=== PATIENT | female | born 1970 | race Caucasian/White ===

== ENCOUNTER 2021-07-10 13:29 | Emergency (ER) | payer OTHER ==
[~2021-07-10] VITALS: Ht 170.2 cm; Wt 93.0 kg
[~2021-07-10 13:29] MED LIST: CELEXA 20 MG TA20 MG PO; COZAAR100 MG PO; HYDROCODON-ACE1 EAC5 PO; HYDROCODONE-AP1 EAC6 PO; IBUPROFEN 400400 M1 PO; IBUPROFEN 800800 M1 PO; LODINE XL500 MG PO; NABUMETONE 750750 M1 PO; ROBAXIN 750 MG750 M1 PO
[2021-07-10] MEDS ORDERED: PREDNISONE50 MG PO (15:42)
[2021-07-10] MEDS ORDERED: LIDODERM1 EACH TOP (15:42)
[2021-07-10] MEDS ORDERED: FLEXERIL PO (15:42)
[2021-07-10 15:50] VITALS: BP 175/94
== END 2021-07-10 15:50 | disposition home or self-care (01) ==
LOC: M.ERS 13:29
DX: M54.42 Lumbago with sciatica, left side (principal); I10 Essential (primary) hypertension; F41.9 Anxiety disorder, unspecified; Z79.899 Other long term (current) drug therapy